=== PATIENT | male | born 1970 | race Caucasian/White ===

== ENCOUNTER 2019-05-25 00:59 | Emergency (ER) | payer OTHER ==
[~2019-05-25] VITALS: Ht 185.4 cm; Wt 82.1 kg
[~2019-05-25 00:59] MED LIST: IBUP-1542 PO; IBUP800T48 PO
[2019-05-25 01:08] VITALS: Ht 185.4 cm; Wt 82.1 kg
[2019-05-25] MEDS ORDERED: KETOROLAC 30 MG INJ IM STA (02:32)
--- NOTE | 2019-05-25 02:32 | ERD ---
ER Documentation Chief Complaint Chief Complaint twisted right ankle 2 days ago, c/o pain/swelling HPI This is a 49-year-old male who presents here in the emergency department with complaints of right ankle pain. Stated that this started 2 days ago after he accidentally twisted his right ankle. Denies headache, head injury, loss of consciousness, dizziness, neck pain, neck stiffness, throat pain, difficulty swallowing, difficulty breathing lying flat, shoulder pain, chest pain, back pain, abdominal pain, nausea, vomiting, constipation, diarrhea, urinary symptoms, loss of bowel and bladder control, difficulty walking due to pain, numbness or tingling sensation, calf pain, recent travel, recent major surgery in the last 3 weeks, calf pain, recent long travel, recent exposure to any illness, recent antibiotic use in the last 3 months, fever, chills, seizures. Past medical history: Denies. Surgical history: Denies. Social: Denies smoking, use of alcoholic beverages, use of illegal drugs. ROS All systems reviewed and are negative except as per history of present illness. Medications Home Meds Active Scripts Ibuprofen* (Motrin*) 600 Mg Tab, 600 MG PO Q6, #30 TAB Prov:ZELDA MERRITT PA-C 06/02/19 Ibuprofen* (Motrin*) 800 Mg Tab, 800 MG PO Q8 PRN for PAIN AND OR ELEVATED TEMP, #30 TAB Prov:JESS MONTAÑO 05/25/19 Allergies Allergies: Uncoded Allergies: BEES (Allergy, Unknown, 06/02/19) PMhx/Soc Medical and Surgical Hx: pt denies Medical Hx, pt denies Surgical Hx Hx Alcohol Use: No Hx Substance Use: No Hx Tobacco Use: No Smoking Status: Never smoker Physical Exam Vitals Physical Exam Const: No acute distress Head: Atraumatic Eyes: Normal Conjunctiva ENT: Normal External Ears, Nose and Mouth. Neck: Full range of motion. No meningismus. Resp: Clear to auscultation bilaterally Cardio: Regular rate and rhythm, no murmurs Abd: Soft, non tender, non distended. Normal bowel sounds Skin: No petechiae or rashes Back: No midline or flank tenderness Ext: No cyanosis, or edema. Left ankle: Mild swelling with no deformity. Go od and full range of motion. Left foot: Tenderness to palpation. No obvious deformity. Pedal pulses within normal limits. Capillary refills is less than 2 seconds. Left tibia and fibula: Mild tenderness to its distal area with no obvious deformity. No calf tenderness. Bilateral knees are unremarkable. Bilateral hips are stable and unremarkable. Right lower extremity is unr emarkable. No neurovascular deficits. Neur: Awake and alert. No neurological deficits. Psych: Normal Mood and Affect Results 24 hrs Current Medications Medications Dose Sig/Ravi Start Time Status Last (Trade) Ordered Route PRN Stop Time Admin Dose Reason Admin Ketorolac 30 mg ONCE STAT 05/25/19 DC 05/25/19 Tromethamine IM 02:32 05/25/19 02:40 (Toradol) 02:34 1 tab ONCE ONCE 05/25/19 DC Acetaminophen PO 03:00 05/25/19 / 03:01 Hydrocodone Bitart (Zalma (10)) Procedures/MDM Diagnostic tests: X-ray of the right tibia and fibula: No evidence of fracture or malalignment. X-ray of the right ankle: No acute fracture dislocation or foreign body. X-ray of the right foot: No evidence of acute fracture dislocation or foreign body. Treatment: Zalma p.o. Toradol IM. Delon wrap. Crutches with crutch training was also provided. Re-evaluation: No neurovascular deficits prior to and after the application of Delon wrap. Patient stated that he feels much better this time and that is ready to go home. Patient stated that he is comfortable to go home. Differential diagnosis I have low suspicion for open fracture, compartment syndrome, displaced fracture. Final diagnosis: Ankle sprain. Prescription: Motrin. Follow-up with PCP in the next 24-48 hours. Follow-up with media specialist in the next 24 to 48 hours. Come back here in the emergency department for any new symptoms or any worsening symptoms. All questions and concerns were answered. Patient and family members verbalized understanding and agreed with plan of care. Hemodynamically stable on discharge. Departure Diagnosis: Primary Impression: Ankle injury Additional Impressions: Ankle pain Ankle sprain Condition: Stable Additional Instructions: Follow-up with PCP in the next 24-48 hours. Follow-up with media specialist in the next 24 to 48 hours. Come back here in the emergency department for any new symptoms or any worsening symptoms. JESS MONTAÑO May 25, 2019 02:32
[2019-05-25] MEDS ORDERED: HYDROCODONE/APAP (10/325) TAB PO ONE (03:00)
[2019-05-25 04:23] VITALS: BP 166/109; PULSE 91; RESP 20
== END 2019-05-25 04:25 | disposition home or self-care (01) ==
LOC: FTE 00:59
DX: S93.401A Sprain of unspecified ligament of right ankle, initial encounter (principal); X50.1XXA Overexertion from prolonged static or awkward postures, initial encounter; Y92.9 Unspecified place or not applicable
CPT/HCPCS: 73590; 73610; 73630; 96372; J1885; Z7502

== ENCOUNTER 2019-06-02 01:03 | Emergency (ER) | payer OTHER ==
[~2019-06-02] VITALS: Ht 185.4 cm; Wt 85.0 kg
[2019-06-02 01:06] VITALS: Ht 185.4 cm; Wt 85.0 kg
[2019-06-02] MEDS ORDERED: IBUPROFEN 600 MG TAB PO ONE (02:30)
[2019-06-02 02:35] VITALS: BP 132/77; PULSE 91; RESP 16
--- NOTE | 2019-06-02 04:31 | ERD ---
ER Documentation Chief Complaint Chief Complaint RIGHT ANKLE PAIN/SWELLING. HPI This is a 49-year-old male with no significant past medical history presenting to the emergency department complaining of ongoing swelling and pain to the right ankle after injury 2 weeks ago. The patient was seen here after the injury happened and had x-rays of the right ankle which showed no evidence of fracture. Current pain is rated 9/10 in severity and worse with walking. He has taken no medication for relief of symptoms. He denies any head injury, loss of consciousness, or other symptoms or injuries at this time. ROS All systems reviewed and are negative except as per history of present illness. Medications Home Meds Active Scripts Ibuprofen* (Motrin*) 600 Mg Tab, 600 MG PO Q6, #30 TAB Prov:ZELDA MERRITT PA-C 06/02/19 Ibuprofen* (Motrin*) 800 Mg Tab, 800 MG PO Q8 PRN for PAIN AND OR ELEVATED TEMP, #30 TAB Prov:JESS MONTAÑO 05/25/19 Allergies Allergies: Uncoded Allergies: BEES (Allergy, Unknown, 06/02/19) PMhx/Soc History of Surgery: Yes (RIGHT KNEE X2 ; BULLET REMOVED R LEG) Anesthesia Reaction: No Hx Respiratory Disorders: Yes (ASTHMA ) Hx Alcohol Use: No Hx Substance Use: No Hx Tobacco Use: No FmHx Family History: No diabetes Physical Exam Vitals Vital Signs Date Temp Pulse Resp B/P (MAP) Pulse Ox O2 O2 Flow FiO2 Time Delivery Rate 06/02/19 91 16 132/77 02:35 (95) 06/02/19 97.7 105 16 150/117 96 01:06 (128) Physical Exam Const: No acute distress Head: Atraumatic Eyes: Normal Conjunctiva ENT: Normal External Ears, Nose and Mouth. Neck: Full range of motion. No meningismus. Resp: No respiratory distress. Skin: No petechiae or rashes Back: No midline or flank tenderness Ext: No cyanosis, or edema. No right-sided calf tenderness. There is edema with mild tenderness palpation of the right lateral malleolus. No obvious defor mity or open fracture. Patient is neurovascularly intact the right lower extremity. Neur: Awake and alert Psych: Normal Mood and Affect Results 24 hrs Current Medications Medications Dose Sig/Ravi Start Time Status Last (Trade) Ordered Route PRN Stop Time Admin Dose Reason Admin Ibuprofen 600 mg ONCE ONCE 06/02/19 DC 06/02/19 (Motrin) PO 02:30 06/02/19 02:28 02:31 Procedures/MDM 49-year-old male presents to the emergency department complaining of right ankle pain. History and physical exam was consistent with ankle sprain. I did recommend repeat x-ray of the right ankle, however the patient would like to defer at this time. He is requesting Delon wrap. Patient required Delon wrap for comfort.Splint Assessment: Neurovascularly intact post splint placement with good fit. Patient's extremity symptoms have stabilized while they have been evaluated in the department and are appropriate for outpatient follow up. No evidence of compartment syndrome, neurologic injury, vascular injury, open joint, open fracture, tendon laceration, or foreign body. Patient's blood pressure was elevated (>120/80) but appears stable without evidence of hypertension emergency or urgency. The patient is to follow-up and pursue outpatient monitoring and therapy with their primary care physician within 1 week and return immediately if they have any new, worsening, or concerning symptoms. Disclaimer: Inadvertent spelling and grammatical errors are likely due to EHR/dictation software use and do not reflect on the overall quality of patient care. Also, please note that the electronic time recorded on this note does not necessarily reflect the actual time of the patient encounter. Departure Diagnosis: Primary Impression: Right ankle sprain Encounter type: initial encounter Involved ligament of ankle: unspecified ligament Qualified Codes: S93.401A - Sprain of unspecified ligament of right ankle, initial encounter Condition: Fair Patient Instructions: Treating Ankle Sprains Referrals: [facility] YOU HAVE RECEIVED A MEDICAL SCREENING EXAM AND THE RESULTS INDICATE THAT YOU DO NOT HAVE A CONDITION THAT REQUIRES URGENT TREATMENT IN THE EMERGENCY DEPARTMENT. FURTHER EVALUATION AND TREATMENT OF YOUR CONDITION CAN WAIT UNTIL YOU ARE SEEN IN YOUR DOCTORS OFFICE WITHIN THE NEXT 1-2 DAYS. IT IS YOUR RESPONSIBILITY TO MAKE AN APPOINTMENT FOR FOLOW-UP CARE. IF YOU HAVE A PRIMARY DOCTOR --you should call your primary doctor and schedule an appointment IF YOU DO NOT HAVE A PRIMARY DOCTOR YOU CAN CALL OUR PHYSICIAN REFERRAL HOTLINE AT IF YOU CAN NOT AFFORD TO SEE A PHYSICIAN YOU CAN CHOSE FROM THE FOLLOWING [facility] [address] [facility]. [facility] [address] [facility]. [facility] [address] [facility] [address] [facility]. [facility] [address] [facility]. [facility] [address] Additional Instructions: Call your primary care doctor TOMORROW for an appointment during the next 1-2 days.See the doctor sooner or return here if your condition worsens before your appointment time. ZELDA MERRITT PA-C Jun 02, 2019 04:31
== END 2019-06-02 02:40 | disposition home or self-care (01) ==
LOC: FTE 01:03
DX: S93.401A Sprain of unspecified ligament of right ankle, initial encounter (principal); J45.909 Unspecified asthma, uncomplicated; X58.XXXA Exposure to other specified factors, initial encounter; Y92.9 Unspecified place or not applicable
CPT/HCPCS: L3260; Z7502; Z7610; 99282